=== PATIENT | male | born 2000 | race Caucasian/White ===

== ENCOUNTER 2021-12-26 19:44 | Emergency (ER) | payer BC, SELFPAY ==
--- NOTE | 2021-12-26 20:00 | HMH.EDUTC ---
[facility] [place] Clinical Impression: Viral syndrome, Exposure to COVID-19 virus Fever Qualifiers: Fever type: unspecified Qualified Code(s): R50.9 - Fever, unspecified Disposition: Home, Self-Care Condition on Discharge: Good Instructions: DI for Viral Syndrome, DI for COVID-19 (Suspected or Confirmed ), Preventing the Spread of Coronavirus Discharge Instructions Additional Instructions: Drink plenty of fluids. Take tylenol or ibuprofen for pain or fever. Take the medications as directed. Follow up with your regular doctor. GO TO THE ER FOR ANY WORSENING SYMPTOMS Quarantine until you know the results of your covid-19 test. Notify your school or workplace of your results and follow their instructions regarding return to work/school. I will call you in the morning about your blood counts. I'm sure they will be ok, but we should check them. Prescriptions: Ibuprofen [Ibuprofen 800mg Tablet] 800 mg PO Q8HP PRN #30 tab PRN Reason: Moderate Pain Transmission Status: Received by [id number] Ondansetron [Zofran 4mg ODT] 4 mg PO Q8HP PRN #20 tab PRN Reason: Nausea Transmission Status: Received by [id number] Referrals: Provider,Referral, MD [Primary Care Provider] - Time of Disposition: 20:48 Medical Decision Making - Medical Records Medical records reviewed: No: I reviewed the patient's medical records. - Tono Inquiry Pt receiving controlled substance: No Vital Signs: 12/26/21 20:07 12/26/21 20:56 Temperature 101.4 F H 101.0 F H Temperature Source Oral Pulse Rate 92 H Pulse Rate [Brachial] 95 H Respiratory Rate 20 18 Blood Pressure 125/70 Blood Pressure [Right Arm] 128/62 Blood Pressure Mean [Right Arm] 84 Blood Pressure Source [Right Arm] Automatic Cuff Blood Pressure Position Sitting Blood Pressure Position [Right Arm] Sitting 02 Sat by Pulse Oximetry 99 Oxygen Delivery Method Room Air Room Air - Lab Data Lab results reviewed: Yes: I reviewed the patient's lab results. Lab Results 12/26/21 20:15: Chlamy pneumoniae PCR Not detected, Adenovirus (PCR) Not detected, B. pertussis DNA (PCR) Not detected, Coronavirus OC43 (PCR) Not detected, Coronavirus HKU1 (PCR) Not detected, Coronavirus 229E (PCR) Not detected, SARS-CoV-2 (PCR) Not detected, Coronavirus NL63 (PCR) Not detected, Human Metapneumovir PCR Not detected, Influenza A (H1) PCR Not detected, Influ A (H1N1/09) PCR Not detected, Influenza A (H3) PCR Not detected, Influenza Type A (PCR) Not detected, Influenza Type B (PCR) Not detected, M. pneumoniae (PCR) Not detected, Parainfluenza 1 (PCR) Not detected, Parainfluenza 2 (PCR) Not detected, Parainfluenza 3 (PCR) Not detected, Parainfluenza 4 (PCR) Not detected, RSV (PCR) Not detected, Entero/Rhino (PCR) Not detected 12/26/21 20:30: Strep Scn [facility] Negative 12/26/21 20:50: WBC 5.1, RBC 5.30, Hgb 15.9, Hct 48.7, MCV 91.9, MCH 30.1, MCHC 32.7, RDW 13.0, Plt Count 150, MPV 8.2, Neut % (Auto) 44.3, Lymph % (Auto) 43.0, Robertson % (Auto) 6.5, Eos % (Auto) 2.3, Baso % (Auto) 4.0 H, Neut # (Auto) 2.3, Lymph # (Auto) 2.2, Robertson # (Auto) 0.3, Eos # (Auto) 0.1, Baso # (Auto) 0.2 12/26/21 20:50: Sodium 134 L, Potassium 4.0, Chloride 98, Carbon Dioxide 29, Anion Gap 11.0, BUN 11, Creatinine 0.80, Estimated Creat Clear 205, Estimated GFR 122, Est GFR ( Amer) 148, Glucose 92, Calcium 8.7, Total Bilirubin 0.5, AST 47, ALT 50, Alkaline Phosphatase 55, Total Protein 6.7, Albumin 4.1, Globulin 2.6, Albumin/Globulin Ratio 1.6 Result diagrams: 12/26/21 20:50 12/26/21 20:50 Orders (Tests/Meds): ORDERS Category Date Time Status Strep Screen Confirmation Stat Micro 12/26/21 20:30 Received [facility] [place] - General Stated complaint: FABIAN nausa Time Seen by Provider: 12/26/21 20:00 - History of Present Illness Provider Complaint: He states that for the past 2 days he has had body aches, chills, low grade fever, a dry cough and he has f
[2021-12-26 20:07] VITALS: BP 128/62; PULSE 95; RESP 20; TEMP 38.6; O2SAT 99; BMI 28.0
[2021-12-26 20:20] LABS: Adenovirus,PCR Not Detected (NotDetected); Bordetella Pertussis Not Detected (NotDetected); Chlamydophila Pneumoniae, PCR Not Detected (NotDetected); Coronavirus 19, PCR Not Detected (NotDetected); Coronavirus 229E Not Detected (NotDetected); Coronavirus NL63 Not Detected (NotDetected); Coronavirus OC43 Not Detected (NotDetected); Coronovirus HKU1,PCR Not Detected (NotDetected); Human Metapneumovirus Not Detected (NotDetected); Influenza A, PCR Not Detected (NotDetected); Influenza AH1, 2009 Not Detected (NotDetected); Influenza AH1, PCR Not Detected (NotDetected); Influenza AH3,PCR Not Detected (NotDetected); Influenza B, PCR Not Detected (NotDetected); Mycoplasma Pneumoniae, PCR Not Detected (NotDetected); Parainfluenza 1, PCR Not Detected (NotDetected); Parainfluenza 2, PCR Not Detected (NotDetected); Parainfluenza 3, PCR Not Detected (NotDetected); Parainfluenza 4, PCR Not Detected (NotDetected); Respiratory Syncytial Virus Not Detected (NotDetected); Rhinovirus/Enterovirus Not Detected (NotDetected)
[2021-12-26 20:38] LABS: UTC Strep Screen (Rapid) Negative (Negative)
[2021-12-26 20:56] VITALS: BP 125/70; PULSE 92; RESP 18; TEMP 38.3; O2SAT 99
[2021-12-26 21:06] LABS: Basophils # 0.2 K/mm3 (0-0.2); Eosinophils # 0.1 K/mm3 (0.0-0.4); Eosinophils % 2.3 % (0.1-12.0); Hematocrit 48.7 % (42.0-52.0); Hemoglobin 15.9 g/dL (14.1-18.0); Lymphocytes # 2.2 K/mm3 (0.7-4.5); Mean Corpuscular HGB Conc 32.7 g/dL (31.8-35.4); Mean Corpuscular Hemoglobin 30.1 pg (27.0-31.2); Mean Corpuscular Volume 91.9 fl (80-94); Mean Platelet Volume 8.2 fl (7.4-10.4); Monocytes # 0.3 K/mm3 (0.1-1.0); Monocytes % 6.5 % (1.7-9.3); Neutrophils # 2.3 K/mm3 (1.8-7.8); Neutrophils % 44.3 % (37.0-80.0); Platelet Count 150 K/mm3 (142-424); White Blood Count 5.1 K/mm3 (4.8-10.8)
[2021-12-26 21:13] LABS: Chloride 98 mmol/L (98-107); Sodium 134 mmol/L (136-145)
[2021-12-26 21:16] LABS: Albumin Level 4.1 g/dl (3.5-5.0); Albumin/Globulin Ratio 1.6 (1.1-1.8); Globulin 2.6 g/dL (1.3-3.2); Total Protein,Serum 6.7 g/dl (6.3-8.2)
[2021-12-26 21:56] LABS: Alanine Aminotransferase 50 U/L (12-78); Alkaline Phosphatase 55 U/L (38-126); Aspartate Amino Transferase 47 U/L (17-59); Bilirubin,Total 0.5 mg/dl (0.2-1.3); Blood Urea Nitrogen 11 mg/dl (9-20); Calcium 8.7 mg/dl (8.4-10.2); Carbon Dioxide 29 mmol/L (22.0-30.0); Creatinine Clearance Estimated 205 mL/min (50-200); Estimated Glomerular Filt Rate 122 ml/min (>60); GFR (African American) 148 ML/MIN (>60); Glucose 92 mg/dl (74-100)
== END 2021-12-26 20:59 | disposition home or self-care (01) ==
PROVIDERS: Emergency Provider Nurse Practitioner Family
DX: B34.9 Viral infection, unspecified (principal); R50.9 Fever, unspecified
CPT/HCPCS: 80053; 85025; 87581; 87632; 87798; 87880; 99212; C9803; G0463; U0003; U0005

== ENCOUNTER 2021-12-28 13:18 | Emergency (ER) | payer BC, SELFPAY ==
[2021-12-28 13:25] VITALS: BP 106/74; PULSE 97; RESP 18; TEMP 37.3; O2SAT 98; BMI 28.0
[2021-12-28 13:43] LABS: Adenovirus,PCR Not Detected (NotDetected); Bordetella Pertussis Not Detected (NotDetected); Chlamydophila Pneumoniae, PCR Not Detected (NotDetected); Coronavirus 19, PCR Not Detected (NotDetected); Coronavirus 229E Not Detected (NotDetected); Coronavirus NL63 Not Detected (NotDetected); Coronavirus OC43 Not Detected (NotDetected); Coronovirus HKU1,PCR Not Detected (NotDetected); Human Metapneumovirus Not Detected (NotDetected); Influenza A, PCR Not Detected (NotDetected); Influenza AH1, 2009 Not Detected (NotDetected); Influenza AH1, PCR Not Detected (NotDetected); Influenza AH3,PCR Not Detected (NotDetected); Influenza B, PCR Not Detected (NotDetected); Mycoplasma Pneumoniae, PCR Not Detected (NotDetected); Parainfluenza 1, PCR Not Detected (NotDetected); Parainfluenza 2, PCR Not Detected (NotDetected); Parainfluenza 3, PCR Not Detected (NotDetected); Parainfluenza 4, PCR Not Detected (NotDetected); Respiratory Syncytial Virus Not Detected (NotDetected); Rhinovirus/Enterovirus Not Detected (NotDetected)
--- NOTE | 2021-12-28 13:47 | HMH.EDUTC ---
[facility] [place] Impression: Bronchitis Sinusitis Qualifiers: Sinusitis location: unspecified location Chronicity: unspecified Qualified Code(s): J32.9 - Chronic sinusitis, unspecified Disposition: Home, Self-Care Condition on Discharge: Good Instructions: Sinusitis, DI for Sinusitis Additional Instructions: ? Start antibiotic today. Be sure to complete entire prescription even if feeling better ? Monitor temp. Tylenol every 4 hours as needed and / or ibuprofen every 6 hours as needed ( As long as your primary care physician has told you that it ok to take both. For fever/aches/pains ER if no less than 101 despite Tylenol or Motrin ? Humidifier/vaporizer or hot steamy shower ? Inhaler every 4-6 hours as needed like we discussed. If unsure how to use it, ask pharmacist to demonstrate how. Should help open airways and improve cough, wheezing, and shortness of breath ? Mucinex during the day for your cough and cough suppressant only at night. Be sure to drink lots of water. Insurance may not cover a prescriptions for mucinex. Might be cheaper to get 400mg tablets and take 2 tablet in the morning, mid-day and evening with lots of water. *Start steroid today. Helps with inflammation therefore, cough and wheezing. Follow directions on the package. Reviewed side effects. Patient reports taking them before. Follow up IMMEDIATELY for new or worsening of symptoms OR no noticeable improvement over the next 48-72 hours. 911 immediately for any life threatening symptoms such as chest pain or difficulty breathing Prescriptions: Albuterol Sulfate [Proventil-HFA 90mcg/puff Inh] 1 - 2 puffs IH Q6HP PRN #1 each PRN Reason: Shortness Of Breath Transmission Status: Pending to [facility] guaiFENesin [Mucinex 600mg tablet] 1 - 2 mg PO Q12HP PRN #20 tab PRN Reason: Congestion Transmission Status: Pending to [facility] methylPREDNISolone [Medrol 4mg tab] 4 mg PO DIRECTED #21 tab Transmission Status: Pending to [facility] Azithromycin [Z-Huey 250mg Tab] 250 mg PO DIRECTED #6 tab Transmission Status: Pending to [facility] Referrals: Provider,Referral, MD [Primary Care Provider] - As needed Forms: Work/School Release Time of Disposition: 14:04 Medical Decision Making - Tono Inquiry Pt receiving controlled substance: No Tono was queried for this patient: No Vital Signs: 12/28/21 13:25 Temperature 99.1 F Temperature Source Oral Pulse Rate [Right Brachial] 97 H Respiratory Rate 18 Blood Pressure [Right Arm] 106/74 L Blood Pressure Mean [Right Arm] 84 Blood Pressure Source [Right Arm] Automatic Cuff Blood Pressure Position [Right Arm] Sitting 02 Sat by Pulse Oximetry 98 Oxygen Delivery Method Room Air Orders (Tests/Meds): ORDERS Category Date Time Status Full Resp Panel w/COVID ([facility]) Routine Lab 12/28/21 13:[address] [facility] [place] - General Stated complaint: chest congestion, weakness, bodyaches, migraine Time Seen by Provider: 12/28/21 13:35 Mode of Arrival: Ambulatory Source of Information: Patient Limitations: No Limitations Description of Symptoms (Recalled from Triage Doc. by RN): PATIENT C/O HEADACHE, CHEST CONGESTION, BODY ACHES, SOA, COUGH AND SORE THROAT SINCE TUESDAY. HE REPORTS BEING SEEN IN [facility] [place] ON TUESDAY BUT IS FEELING WORSE TODAY HEENT Symptoms (Recalled from RN notes): Yes Resp Symptoms (Recalled from RN notes): Yes Skin Symptoms (Recalled from RN notes): No MS Symptoms (Recalled from RN notes): No Functional Status (Recalled from RN notes): WNL - History of Present Illness Provider Complaint: Patient states that he has been having sinus pain and pressure, drainage in the back of his throat, cough, chest congestion and headache States that he was seen a few days ago and was tested for COVID and had lab work but he has continued to get worse so he came back in - Related Data Previous Rx's Medication Instructions Recorded Ibuprofen [Ibup
[2021-12-28 14:00] VITALS: BP 106/74; PULSE 97; RESP 18; TEMP 37.3; O2SAT 98
[2021-12-28 14:05] LABS: UTC Strep Screen (Rapid) Negative (Negative)
== END 2021-12-28 14:05 | disposition home or self-care (01) ==
PROVIDERS: Emergency Provider Nurse Practitioner
DX: J40 Bronchitis, not specified as acute or chronic (principal); J32.9 Chronic sinusitis, unspecified
CPT/HCPCS: 87581; 87632; 87798; 87880; 99212; C9803; G0463; U0003; U0005

== ENCOUNTER 2022-04-27 14:31 | Emergency (ER) | payer BC, SELFPAY ==
--- NOTE | 2022-04-27 15:26 | EXP.UTC ---
Discharge Plan Disposition Patient Disposition: Home, Self-Care Condition: Good Prescriptions Prescriptions: New ibuprofen [IBU] 800 mg tablet 800 mg PO Q8HP PRN (Reason: Moderate Pain) Qty: 30 0RF No Action sertraline [Zoloft] 50 mg tablet 50 mg PO DAILY Qty: 30 1RF Referrals Follow up/Referrals: Provider,Referral, [Primary Care Provider] - See instructions Renetta Leal DPM [Staff Physician] - See instructions Activity Restrictions/Add. Instructions Additional Instructions/Restrictions: Rest the extremity, Elevate the extremity as tolerated while you are resting. Take ibuprofen for pain. I sent in a prescription to your pharmacy. Follow up with Dr. Leal (podiatry). I put in a referral but you need to call her office and schedule an appointment. Follow up with your regular doctor. GO TO THE ER FOR ANY WORSENING SYMPTOMS Clinical Impressions Clinical Impression: Closed fracture of left great toe Instructions Patient Instructions: Toe Fracture, DI for Toe Fracture Discharge ED Provider: Aden Palacio [facility] General Stated complaint: LT big toe pain AO Time Seen by Provider: 04/27/22 15:26 History of Present Illness Provider Complaint: He states that 1 month ago he got his left foot caught in a [place]. Since then he has had pain and swelling of that toe. Related Data Previous Rx's Medication Instructions Recorded sertraline 50 mg tablet (Zoloft) 50 mg PO DAILY #30 tabs 04/05/22 ibuprofen 800 mg tablet (IBU) 800 mg PO Q8HP PRN Moderate Pain 04/27/22 #30 tabs Allergies Allergy/AdvReac Type Severity Reaction Status Date / Time No Known Allergies Allergy Verified 04/27/22 15:37 [facility] Medical History Generalized anxiety disorder Surgical History History of tonsillectomy and adenoidectomy Family History Mother FHx: mental illness Father FHx: mental illness Family/Other FHx: mental illness Social History Smoking Status: Current every day smoker quit status: considering quitting second hand exposure: No alcohol intake: never substance use type: denies use counseling given: No (not needed) current occupational status: employed and other Travel in the last 8 weeks: None adopted: No caregiver/support person: No foster care: No household members: significant other and other details: lives with boyfriend; and boyfriend's mom housing: house marital status: single number of children: 0 service: No snf: No pets and animals: Yes (5 dogs) pets and animals: dog(s) Hx Recent Travel: No sexually active: Yes physical activity: none ROS Obtained: Yes All systems reviewed & no additional complaints except as documented Constitutional Constitutional: Denies chills and Denies fever(s) Integumentary/Breasts Skin/Breast: Denies redness, Denies rash and Denies wounds Neurologic Neurologic: Denies paresthesias Physical Exam General General appearance: alert and in no apparent distress Head Head exam: atraumatic, normocephalic and normal inspection Eye Eye exam: Present normal appearance, PERRL and EOMI ENT ENT exam: Present normal exam, normal oropharynx, mucous membranes moist, TM's normal bilaterally and normal external ear exam Neck Neck exam: Present normal inspection, full ROM and trachea midline; Absent meningismus or lymphadenopathy Chest Chest inspection: Present normal inspection and symmetric chest wall rise; Absent tenderness Respiratory Respiratory exam: Present normal lung sounds bilaterally; Absent respiratory distress Cardiovascular Cardiovascular exam: Present regular rate and normal rhythm; Absent JVD Abdominal Exam Abdominal exam: Present soft and normal bowel
[2022-04-27 15:34] VITALS: BP 112/85; PULSE 93; RESP 18; TEMP 36.4; O2SAT 99; BMI 28.8
--- NOTE | 2022-04-27 15:43 | XR_ITS ---
FINAL REPORT CLINICAL HISTORY: injury, smashed great toe x 1 .5 months ago swelling FINDINGS: 3 views of the left foot were obtained. There is an oblique minimally displaced fracture of the 1st proximal phalanx. Fracture line extends to the medial IP joint. There may be mild callus formation at the fracture site. The joint spaces are intact. The soft tissues are unremarkable. IMPRESSION: Oblique fracture of the 1st proximal phalanx with intra-articular extension. Reviewed, Interpreted and Dictated by Reynaldo Garcia MD Transcribed by Judson Verdugo Authenticated and [facility]
[2022-04-27 16:30] VITALS: BP 112/85; PULSE 93; RESP 18; TEMP 36.4
== END 2022-04-27 16:34 | disposition home or self-care (01) ==
PROVIDERS: Emergency Provider Nurse Practitioner Family
DX: S92.412A Displaced fracture of proximal phalanx of left great toe, initial encounter for closed fracture (principal); W22.8XXA Striking against or struck by other objects, initial encounter; Y92.838 Other recreation area as the place of occurrence of the external cause
CPT/HCPCS: 73630; 99213; G0463

== ENCOUNTER 2022-10-15 19:28 | Emergency (ER) | payer BC, SELFPAY ==
--- NOTE | 2022-10-15 19:26 | ECG_ITS ---
APPROVED REPORT Exam: Resting ECG HR:83 bpm ECG Measurements Heart Rate 83 AXES TX 148 P 69 QRSd 106 QRS 8 QT 358 T 64 QTc 398 Conclusion SINUS RHYTHM INCOMPLETE RIGHT BUNDLE BRANCH BLOCK [90+ ms QRS DURATION, TERMINAL R IN V1/V2, 40+ ms S IN I/aVL/V4/V5/V6] BORDERLINE ECG UNCONFIRMED REPORT Electronically signed by : Ananth Randolph MD 10/16/2022 15:52:14
[2022-10-15 19:28] VITALS: BP 146/73; PULSE 82; RESP 16; TEMP 36.6; O2SAT 97; BMI 36.9
--- NOTE | 2022-10-15 19:34 | XR_ITS ---
PROCEDURE INFORMATION: Exam: XR Chest Exam date and time: 10/15/2022 7:36 PM Age: 22 years old Clinical indication: Pain; Angina pectoris; Additional info: Cp TECHNIQUE: Imaging protocol: Radiologic exam of the chest. Views: 2 views. COMPARISON: No relevant prior studies available. FINDINGS: Lungs: Lung volumes are mild to moderately diminished. The lungs appear clear. No focal areas of consolidation. Pleural spaces: No pleural effusions. Negative for pneumothorax. Heart/Mediastinum: Cardiac silhouette and pulmonary vasculature are within range of normal. Bones/joints: There is no evidence of acute fracture. IMPRESSION: Negative for an acute cardiopulmonary abnormality.
[2022-10-15 19:43] LABS: Basophils % 0.5 % (0.1-2.0); Eosinophils # 0.5 K/mm3 (0.0-0.4); Eosinophils % 6.5 % (0.1-12.0); Hematocrit 45.2 % (42.0-52.0); Hemoglobin 15.2 g/dL (14.1-18.0); Lymphocytes # 2.2 K/mm3 (0.7-4.5); Lymphocytes % 30.4 % (10-50); Mean Corpuscular HGB Conc 33.6 g/dL (31.8-35.4); Mean Corpuscular Hemoglobin 29.3 pg (27.0-31.2); Mean Corpuscular Volume 87.2 fl (80-94); Mean Platelet Volume 7.8 fl (7.4-10.4); Monocytes # 0.4 K/mm3 (0.1-1.0); Monocytes % 6.1 % (1.7-9.3); Neutrophils # 4.1 K/mm3 (1.8-7.8); Neutrophils % 56.5 % (37.0-80.0); Platelet Count 223 K/mm3 (142-424); Red Blood Count 5.18 M/mm3 (4.60-6.20); Red Cell Distribution Width 12.9 % (11.5-17.5); White Blood Count 7.2 K/mm3 (4.8-10.8)
[2022-10-15 19:47] LABS: Chloride 96 mmol/L (98-107); Potassium 3.8 mmoL/L (3.5-5.1); Sodium 139 mmol/L (136-145)
[2022-10-15 19:50] LABS: Anion Gap 15.8 mEq/L (5-15); Blood Urea Nitrogen 17 mg/dl (9-20); Carbon Dioxide 31 mmol/L (22.0-30.0); Creatinine Clearance Estimated 231 mL/min (50-200); Estimated Glomerular Filt Rate 106 ml/min (>60); GFR (African American) 128 ML/MIN (>60); Glucose 78 mg/dl (74-100)
[2022-10-15 20:00] VITALS: BP 103/60; PULSE 76; RESP 16; O2SAT 99
[2022-10-15 20:05] LABS: Troponin I < 0.01 ng/ml (0.00-0.034)
[2022-10-15 20:30] VITALS: BP 119/72; PULSE 83; RESP 18; O2SAT 99
--- NOTE | 2022-10-15 21:11 | HMH.EDCP ---
Discharge Plan Disposition Patient Disposition: Home, Self-Care Condition: Good Prescriptions Prescriptions: New famotidine [Pepcid] 20 mg tablet 20 mg PO BID 42 Days Qty: 84 0RF No Action fluoxetine [Prozac] 20 mg capsule 20 mg PO DAILY Qty: 30 1RF ibuprofen [IBU] 800 mg tablet 800 mg PO Q8HP PRN (Reason: Moderate Pain) Qty: 30 0RF Referrals Follow up/Referrals: Provider,Referral, MD [Primary Care Provider] - See instructions Activity Restrictions/Add. Instructions Additional Instructions/Restrictions: Please return immediately for any new or worsening symptoms. Please see your PCP in 2 days for re-evaluation of your symptoms. Clinical Impressions Clinical Impression: Chest pain Instructions Patient Instructions: DI for Atypical Chest Pain Discharge ED Provider: Toney Dejesus Chest Pain HPI General Chief Complaint: Chest Pain Stated Complaint: cp Time Seen by Provider: 10/15/22 20:25 Mode of Arrival: Ambulatory Source of Information: Patient Limitations: No Limitations Description of Symptoms (Recalled from ER Triage Doc. by RN): pt states that he had some burning sensation in his chest this am. Then this afternoon started having achy in lt side chest History of Present Illness HPI narrative: 22 year old with no significant PMH who presents with cp. earlier today patient had epigastric burning and now having burning in the LS of his chest. he has a cough but no fevers. no soa, arm pain, leg pain, leg swelling, or hemoptysis Related Data Previous Rx's Medication Instructions Recorded ibuprofen 800 mg tablet (IBU) 800 mg PO Q8HP PRN Moderate Pain 04/27/22 #30 tabs fluoxetine 20 mg capsule (Prozac) 20 mg PO DAILY #30 caps 08/31/22 famotidine 20 mg tablet (Pepcid) 20 mg PO BID 6 weeks #84 tabs 10/15/22 Allergies Allergy/AdvReac Type Severity Reaction Status Date / Time No Known Allergies Allergy Verified 08/31/22 09:39 [facility] [place] Disclaimer: The information contained in this section may have been updated after the patient was seen, as this information can be updated by other users. Medical History Generalized anxiety disorder Surgical History History of tonsillectomy and adenoidectomy Family History Mother FHx: mental illness Father FHx: mental illness Family/Other FHx: mental illness Social History Smoking Status: Current every day smoker quit status: considering quitting second hand exposure: No alcohol intake: never substance use type: denies use counseling given: No (not needed) current occupational status: employed and other Travel in the last 8 weeks: None adopted: No caregiver/support person: No foster care: No household members: significant other and other details: lives with boyfriend; and boyfriend's mom housing: house marital status: single number of children: 0 service: No longterm: No pets and animals: Yes (5 dogs) pets and animals: dog(s) Hx Recent Travel: No sexually active: Yes physical activity: none ROS Obtained: Yes All systems reviewed & no additional complaints except as documented Physical Exam General General appearance: alert and in no apparent distress Head Head exam: atraumatic and normocephalic Eye Eye exam: Present normal appearance ENT ENT exam: Present normal exam Neck Neck exam: Present normal inspection Chest Chest inspection: Present normal inspection and symmetric chest wall rise Respiratory Respiratory exam: Present normal lung sounds bilaterally Cardiovascular Cardiovascular exam: Present regular rate and normal rhythm Abdominal Exam Abdominal exam: Present soft Extremities Exam Extremities exam: Present normal inspection Neurological Exam Neurologi
[2022-10-15 21:12] VITALS: BP 108/56; PULSE 80; PULSE 82; RESP 18; TEMP 36.6; O2SAT 99
== END 2022-10-15 21:19 | disposition home or self-care (01) ==
PROVIDERS: Emergency Provider Emergency Medicine
DX: R07.9 Chest pain, unspecified (principal); F17.200 Nicotine dependence, unspecified, uncomplicated
CPT/HCPCS: 71046; 80048; 84484; 85025; 93005; 96374; 99285

== ENCOUNTER 2022-10-20 11:09 | Emergency (ER) | payer BC, SELFPAY ==
[2022-10-20 11:33] VITALS: BP 128/91; PULSE 64; RESP 18; TEMP 37.1; O2SAT 99; BMI 36.9
--- NOTE | 2022-10-20 11:51 | EXP.UTC ---
Discharge Plan Disposition Patient Disposition: Home, Self-Care Condition: Good Prescriptions Prescriptions: New azithromycin [Zithromax] 250 mg tablet 250 mg PO UD DOSE PK Qty: 6 0RF Rx Instructions: Take two (2) tablets today, then one (1) tablet days #2 thru #5 methylprednisolone 4 mg Tablets,Dose Pack 4 mg PO DIRECTED Qty: 21 0RF ohyztjolgygnpzv-iaxjlzqiv-CZ [Bromfed DM] 2-30-10 mg/5 mL Syrup 5 ml PO Q6H PRN (Reason: Cough) Qty: 240 0RF No Action fluoxetine [Prozac] 20 mg capsule 20 mg PO DAILY Qty: 30 1RF famotidine [Pepcid] 20 mg tablet 20 mg PO BID 42 Days Qty: 84 0RF ibuprofen [IBU] 800 mg tablet 800 mg PO Q8HP PRN (Reason: Moderate Pain) Qty: 30 0RF Referrals Follow up/Referrals: Provider,Referral, MD [Primary Care Provider] - See instructions Activity Restrictions/Add. Instructions Additional Instructions/Restrictions: Drink plenty of fluids. Take tylenol or ibuprofen for pain or fever. Take the medications as directed. Follow up with your regular doctor. GO TO THE ER FOR ANY WORSENING SYMPTOMS Clinical Impressions Clinical Impression: Sinusitis Stand Alone Forms Stand Alone Forms: Work/School Release Instructions Patient Instructions: Sinusitis, DI for Sinusitis Discharge ED Provider: Aden Palacio [facility] General Stated complaint: Congestion, drainage, sore throat Mode of Arrival: Ambulatory Source of Information: Patient Limitations: No Limitations Time Seen by Provider: 10/20/22 11:51 Description of Symptoms (Recalled from Triage Doc. by RN): pt c/o sinus pressure/congestion and a migraine x2d HEENT Symptoms (Recalled from RN notes): Yes Resp Symptoms (Recalled from RN notes): No Skin Symptoms (Recalled from RN notes): No MS Symptoms (Recalled from RN notes): No Functional Status (Recalled from RN notes): wnl History of Present Illness Provider Complaint: He c/o sinus congestion for the past 4 days. Related Data Previous Rx's Medication Instructions Recorded ibuprofen 800 mg tablet (IBU) 800 mg PO Q8HP PRN Moderate Pain 04/27/22 #30 tabs fluoxetine 20 mg capsule (Prozac) 20 mg PO DAILY #30 caps 08/31/22 famotidine 20 mg tablet (Pepcid) 20 mg PO BID 6 weeks #84 tabs 10/15/22 azithromycin 250 mg tablet 250 mg PO UD DOSE PK #6 tabs 10/20/22 (Zithromax) ylhesbmoljgencg-tzehtvmpiigrjxh-CF 5 ml PO Q6H PRN Cough #240 mL 10/20/22 2 mg-30 mg-10 mg/5 mL oral syrup (Bromfed DM) methylprednisolone 4 mg tablets in 4 mg PO DIRECTED #21 tabs 10/20/22 a dose pack Allergies Allergy/AdvReac Type Severity Reaction Status Date / Time No Known Allergies Allergy Verified 10/20/22 11:35 Worker's Comp Is this a Worker's Comp case?: No [facility] Disclaimer: The information contained in this section may have been updated after the patient was seen, as this information can be updated by other users. Medical History Generalized anxiety disorder Surgical History History of tonsillectomy and adenoidectomy Family History Mother FHx: mental illness Father FHx: mental illness Family/Other FHx: mental illness Social History Smoking Status: Current every day smoker quit status: considering quitting second hand exposure: No alcohol intake: never substance use type: denies use counseling given: No (not needed) current occupational status: employed and other Travel in the last 8 weeks: None adopted: No caregiver/support person: No foster care: No household members: significant other and other details: lives with boyfriend; and boyfriend's mom housing: house marital status: single number of children: 0 service: No mcc: No pets and animals: Yes (5 dogs) pets and an
[2022-10-20 12:22] VITALS: BP 128/91; PULSE 64; RESP 18; TEMP 37.1
== END 2022-10-20 12:24 | disposition home or self-care (01) ==
PROVIDERS: Emergency Provider Nurse Practitioner Family
DX: J01.90 Acute sinusitis, unspecified (principal); F17.210 Nicotine dependence, cigarettes, uncomplicated
CPT/HCPCS: 99212; 99214; G0463

== ENCOUNTER 2022-10-28 12:52 | Emergency (ER) | payer BC, SELFPAY ==
[2022-10-28 13:04] VITALS: BP 113/68; PULSE 62; RESP 18; TEMP 37.2; O2SAT 98; BMI 41.9
--- NOTE | 2022-10-28 13:42 | EXP.UTC ---
Discharge Plan Disposition Patient Disposition: Home, Self-Care Condition: Good Prescriptions Prescriptions: New ondansetron 4 mg tablet,disintegrating 4 mg PO Q8H PRN (Reason: nausea and vomiting) Qty: 10 0RF No Action fluoxetine [Prozac] 20 mg capsule 20 mg PO DAILY Qty: 30 1RF famotidine [Pepcid] 20 mg tablet 20 mg PO BID 42 Days Qty: 84 0RF ibuprofen [IBU] 800 mg tablet 800 mg PO Q8HP PRN (Reason: Moderate Pain) Qty: 30 0RF azithromycin [Zithromax] 250 mg tablet 250 mg PO UD DOSE PK Qty: 6 0RF Rx Instructions: Take two (2) tablets today, then one (1) tablet days #2 thru #5 methylprednisolone 4 mg Tablets,Dose Pack 4 mg PO DIRECTED Qty: 21 0RF [id number] [Bromfed DM] 2-30-10 mg/5 mL Syrup 5 ml PO Q6H PRN (Reason: Cough) Qty: 240 0RF Referrals Follow up/Referrals: Provider,Referral, MD [Primary Care Provider] - See instructions Activity Restrictions/Add. Instructions Additional Instructions/Restrictions: Drink extra fluids with and between meals. If you have difficulty drinking, try very small amounts of water or suck on ice chips. ? Avoid fruit juices, as these do not replace minerals and can actually increase diarrhea. ? Children and adults can use sports drinks to replenish electrolytes. Younger children and infants should use products formulated for children, like oral rehydration solutions. ? Eat food in small amounts and let your stomach recover. ? Get lots of rest. You may feel tired or weak. ? No greasy or fried foods for the next 24-48 hours BRAT diet Bananas Rice Apples and [place] ? Make sure to drink plenty of liquids ? Return if needed ? Straight to ER if any life threatening symptoms ? Zofran as prescribed ? Follow up with family doctor in the next 48-72 hours if no improvement or any worsening of symptoms Clinical Impressions Clinical Impression: Nausea vomiting and diarrhea Stand Alone Forms Stand Alone Forms: Work/School Release Instructions Patient Instructions: Nausea and Vomiting-Adult, Diarrhea Discharge ED Provider: Anne-Marie Johnson [facility] [place] HPI General Stated complaint: vomiting, diarrhea, fatigue Mode of Arrival: Ambulatory Source of Information: Patient Limitations: No Limitations Time Seen by Provider: 10/28/22 13:42 Description of Symptoms (Recalled from Triage Doc. by RN): pt c/o n/v/d. pt states he had [employer] yesterday and thinks he has food poisoning. HEENT Symptoms (Recalled from RN notes): No Resp Symptoms (Recalled from RN notes): No Skin Symptoms (Recalled from RN notes): No MS Symptoms (Recalled from RN notes): No Functional Status (Recalled from RN notes): wnl History of Present Illness Provider Complaint: Patient states that he eat [employer] yesterday and thinks he may have food poisoning States he has been having N/V/D and wasnt able to go to work today Related Data Previous Rx's Medication Instructions Recorded ibuprofen 800 mg tablet (IBU) 800 mg PO Q8HP PRN Moderate Pain 04/27/22 #30 tabs fluoxetine 20 mg capsule (Prozac) 20 mg PO DAILY #30 caps 08/31/22 famotidine 20 mg tablet (Pepcid) 20 mg PO BID 6 weeks #84 tabs 10/15/22 azithromycin 250 mg tablet 250 mg PO UD DOSE PK #6 tabs 10/20/22 (Zithromax) frrlcthbmfbwrvf-zfjfipainbjclej-ML 5 ml PO Q6H PRN Cough #240 mL 10/20/22 2 mg-30 mg-10 mg/5 mL oral syrup (Bromfed DM) methylprednisolone 4 mg tablets in 4 mg PO DIRECTED #21 tabs 10/20/22 a dose pack ondansetron 4 mg disintegrating 4 mg PO Q8H PRN nausea and 10/28/22 tablet vomiting #10 tabs Allergies Allergy/AdvReac Type Severity Reaction Status Date / Time No Known Allergies Allergy Verified 10/28/22 13:10 Worker's Comp Is this a Worker's Comp case?: No [facility] Disclaimer: The information contained in this section may have been updated after the patient was seen, as this information can be updated by ot
[2022-10-28 14:12] VITALS: BP 113/68; PULSE 62; RESP 18; TEMP 37.2
== END 2022-10-28 14:12 | disposition home or self-care (01) ==
PROVIDERS: Emergency Provider Nurse Practitioner
DX: R11.2 Nausea with vomiting, unspecified (principal); R19.7 Diarrhea, unspecified; F41.9 Anxiety disorder, unspecified; F17.210 Nicotine dependence, cigarettes, uncomplicated
CPT/HCPCS: 99212; 99214; G0463

== ENCOUNTER → 2022-12-01 15:21 | Outpatient (CLI) | payer BC, SELFPAY ==
[2022-12-01 14:33] LABS: Microscopic, Urine URINE MICROSCOPIC (MICROSCOPIC)
[2022-12-01 14:45] LABS: Basophils % 0.3 % (0.1-2.0); Eosinophils # 0.5 K/mm3 (0.0-0.4); Eosinophils % 8.8 % (0.1-12.0); Hematocrit 46.1 % (42.0-52.0); Hemoglobin 15.2 g/dL (14.1-18.0); Lymphocytes # 1.6 K/mm3 (0.7-4.5); Lymphocytes % 30.7 % (10-50); Mean Corpuscular Hemoglobin 28.7 pg (27.0-31.2); Mean Corpuscular Volume 86.9 fl (80-94); Mean Platelet Volume 8.2 fl (7.4-10.4); Monocytes # 0.3 K/mm3 (0.1-1.0); Monocytes % 5.2 % (1.7-9.3); Neutrophils # 2.8 K/mm3 (1.8-7.8); Neutrophils % 54.9 % (37.0-80.0); Platelet Count 207 K/mm3 (142-424); Red Cell Distribution Width 12.8 % (11.5-17.5); White Blood Count 5.1 K/mm3 (4.8-10.8)
[2022-12-01 14:48] LABS: Appearance,Urine CLEAR (Clear); Bilirubin,Urine Negative (Negative); Blood, Urine Negative (Negative); Color,Urine YELLOW (Yellow); Glucose,Urine (UA) Negative (Negative); Ketones,Urine Negative (Negative); Leukocyte Esterase,Urine Negative (Negative); Nitrate,Urine Negative (Negative); Protein,Urine Negative (Negative); Specific Gravity, Urine 1.025 (1.005-1.030); Urobilinogen,Urine 0.2 EU/dl (0.2)
[2022-12-01 15:03] LABS: Chol/HDL Ratio 3.5 (1-3.5); Cholesterol 149 mg/dl (140-200); HDL Cholesterol 43 mg/dl (40-60); Triglycerides 81 mg/dl (30-150); VLDL Cholesterol 16 mg/dL (0-40)
[2022-12-01 15:08] LABS: Bacteria,Urine Trace /lpf
[2022-12-01 15:14] LABS: Chloride 99 mmol/L (98-107); Potassium 4.2 mmoL/L (3.5-5.1); Sodium 139 mmol/L (136-145)
[2022-12-01 15:15] LABS: Direct LDL Cholesterol 89.25 mg/dL (100-129)
[2022-12-01 15:16] LABS: Blood Urea Nitrogen 18 mg/dl (9-20); Estimated Glomerular Filt Rate 106 ml/min (>60); GFR (African American) 128 ML/MIN (>60)
[2022-12-01 15:17] LABS: Alanine Aminotransferase 27 U/L (12-78); Albumin Level 4.1 g/dl (3.5-5.0); Albumin/Globulin Ratio 1.6 (1.1-1.8); Alkaline Phosphatase 74 U/L (38-126); Anion Gap 14.2 mEq/L (5-15); Aspartate Amino Transferase 28 U/L (17-59); Bilirubin,Total 0.2 mg/dl (0.2-1.3); Calcium 8.9 mg/dl (8.4-10.2); Carbon Dioxide 30 mmol/L (22.0-30.0); Globulin 2.6 g/dL (1.3-3.2); Glucose 86 mg/dl (74-100); Iron 59 ug/dL (49-181); Total Protein,Serum 6.7 g/dl (6.3-8.2)
[2022-12-01 15:21] LABS: Free Thyroxine Index 2.5 ug/dL (5.93-13.13); T4 (Thyroxine) 8.4 ug/dl (5.53-11.0); Triiodothryronine (T3) Uptake 30 % (23.5-40.5)
[2022-12-01 15:28] LABS: Total Iron Binding Capacity 346 ug/dL (261-462)
[2022-12-01 15:35] LABS: Thyroid Stimulating Hormone 1.06 uIU/mL (0.465-4.68)
[2022-12-01 15:52] LABS: Vitamin B12 359 pg/mL (239-931)
[2022-12-03 09:16] LABS: Thyroid Peroxidase Antibodies <9 IU/mL (0-34)
[2022-12-08 09:19] LABS: 1,25 Dihydroxy Vitamin D 37 pg/mL (.); 1,25-Dihydroxy, Vitamin D-2 <10 pg/mL (.); 1,25-Dihydroxy, Vitamin D-3 37 pg/mL (.)
== END ==
PROVIDERS: Nurse Practitioner Psychiatric/Mental Health; PCP Nurse Practitioner Family; Visit Provider Nurse Practitioner Family
DX: Z00.00 Encounter for general adult medical examination without abnormal findings (principal); R13.10 Dysphagia, unspecified; R05.9 Cough, unspecified; R11.10 Vomiting, unspecified; K21.9 Gastro-esophageal reflux disease without esophagitis; R53.83 Other fatigue; E66.9 Obesity, unspecified; Z68.41 Body mass index [BMI] 40.0-44.9, adult; Z13.1 Encounter for screening for diabetes mellitus; Z13.220 Encounter for screening for lipoid disorders; Z79.899 Other long term (current) drug therapy
CPT/HCPCS: 80053; 80061; 81001; 82607; 82652; 83036; 83540; 83550; 84436; 84443; 84479; 85025; 86376; 86677; 87086

== ENCOUNTER → 2022-12-09 10:46 | Outpatient (CLI) | payer BC, SELFPAY ==
--- NOTE | 2022-12-09 10:46 | FL_ITS ---
FINAL REPORT CLINICAL HISTORY: dysphagia ft: 1:28 FINDINGS: MODIFIED BARIUM SWALLOW History: Dysphagia FINDINGS: Fluoroscopy was provided for the speech pathologist to evaluate the swallowing mechanism. The patient was given several different consistencies of barium while the swallow was visualized fluoroscopically. The report of the speech pathologist should be consulted prior to making dietary decisions. FLUOROSCOPY TIME: 1.28 minutes IMPRESSION: Modified barium swallow under fluoroscopic guidance. Please see the report of the speech pathologist for Dietary recommendations. Films reviewed , interpreted and dictated by Dr. Hernández Transcribed by Layo Chambers PA-C. Reviewed, Interpreted and Dictated by Doc Hernández III, MD Transcribed by LEANN Arshad Authenticated and [facility]
--- NOTE | 2022-12-09 11:34 | HMH.SLMBS2 ---
Speech & Language Evaluation Speech/Language Mod Barium Swallow Start: 12/09/22 11:22 Freq: once Status: Complete Protocol: Document 12/09/22 11:22 JASWANT (Rec: 12/09/22 11:34 JASWANT [id number]) General Information General Current Food Consistency Regular,Thin Liquids Dentition Good Dentition Oxygen Status Room Air Facial Symmetry Symmetrical Patient Orientation Person,Place,Time,Situation Ability to Follow Directions Excellent Communication Ability No Impairment MBS Recommendations Diet Dietary Recommendations Regular,Thin Liquids Treatment/Strategies Strategy/Precaution Recommend Sitting Upright (90 deg),Small Bites and Sips,Alternate Liquids/Solids Referrals/Other Recommended Referrals GI Consult Mod Barium Swallow Impressions Summary and Impressions Oral Phase Impression No Impairment (WFL) Oral Phase Summary Functional oral phase of swallowing. Mastication was adequate on [facility] soft and regular food trials. Good lingual strength. No oral residue noted and AP transit was adequate. Pharyngeal Phase Impression No Impairment (WFL) Pharyngeal Phase Summary Functional pharyngeal phase of swallowing. No aspiration/ penetration noted on the study . No pharyngeal residue noted. Back of tongue and pharyngeal stripping were adequate. Epiglottic inversion and hyolaryngeal excursion and elevation were adequate for airway safety. UES opening was found to be WFL. Speech/Language MBS Assessment/Goals/Plan Assessment Date of Evaluation: 12/09/22 Evaluation Type Initial Certification Assessment/Problems Dysphagia and cough per MD order. Does Patient Qualify for Service No Qualify/Failure Comment Based on the results of the modified barium swallow study, Mr. Damon does not require any further skilled ST services at this time. Recommendations PHYSICIAN CERTIFICATION: The specified therapy services are required, authorized, and reviewed every 30 days. Diet Recommendations Normal Liquid Type Recommendations Normal/Thin SL Swallow Guidelines Reflux precautions Dysphagia Swallow
== END ==
LOC: RAD 10:46
PROVIDERS: PCP Nurse Practitioner Family; Visit Provider Nurse Practitioner Family
DX: R13.10 Dysphagia, unspecified (principal); R05.9 Cough, unspecified
CPT/HCPCS: 70371; 92611

== ENCOUNTER 2023-04-16 13:08 | Emergency (ER) | payer BC, SELFPAY ==
[2023-04-16 13:15] VITALS: BP 146/91; PULSE 92; RESP 18; TEMP 36.9; O2SAT 97; BMI 41.1
--- NOTE | 2023-04-16 13:34 | EXP.UTC ---
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 Instructions Additional Instructions/Restrictions: covid swab was sent to lab, call tomorrow for results. self isolate until test results are known to be negative No sign of a bacterial infection. Likely viral. Viruses can take 7-14 days to run their course. Nasal saline and bulb syringe or nose Di to remove nasal drainage to help with nasal congestion. Hard to eat, drink, sleep with nasal congestion so important to keep this cleaned out. Monitor temp. Tylenol or Motrin as needed for pain or fever Encourage fluids, water, Gatorade, Powerade, Pedialyte if /toddler/child Warm salt water gargles Warm fluids Sore throat lozenges Sleep elevated Humidifier/vaporizer Follow-up immediately for new or worsening symptoms or no noticeable improvement over the next 48-72 hours. Clinical Impressions Clinical Impression: COVID Instructions Patient Instructions: DI for COVID-19 (Suspected or Confirmed ) Discharge ED Provider: Elian ([facility])Michelet [facility] [place] HPI General Stated complaint: at home pos covid test 04/15, congestion Mode of Arrival: Ambulatory Source of Information: Patient Limitations: No Limitations Time Seen by Provider: 04/16/23 13:40 Description of Symptoms (Recalled from Triage Doc. by RN): Had at home covid test positive. Symptoms are congestion and cough HEENT Symptoms (Recalled from RN notes): Yes Resp Symptoms (Recalled from RN notes): No Skin Symptoms (Recalled from RN notes): No MS Symptoms (Recalled from RN notes): No Functional Status (Recalled from RN notes): n/a History of Present Illness Provider Complaint: 22 yr old male presents for cough and congestion for 3-4 days. pt states he took a at home covid test and it was positive Related Data Home Medications Medication Instructions Recorded Confirmed albuterol sulfate 90 mcg/actuation 2 puff inhalation NEEDED PRN 04/16/23 04/16/23 aerosol inhaler Wheezing Previous Rx's Medication Instructions Recorded semaglutide 0.25 mg or 0.5 mg (2 0.5 mg (0.736 mL) SQ WEEKLY #3 mL 12/30/22 mg/3 mL) subcutaneous pen injector Allergies Allergy/AdvReac Type Severity Reaction Status Date / Time No Known Allergies Allergy Verified 04/16/23 13:32 Worker's Comp Is this a Worker's Comp case?: No [facility] Dis[facility]: The information contained in this section may have been updated after the patient was seen, as this information can be updated by other users. 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
[2023-04-16 13:46] VITALS: BP 146/91; PULSE 92; RESP 18; TEMP 36.9; O2SAT 97
== END 2023-04-16 13:46 | disposition home or self-care (01) ==
PROVIDERS: Emergency Provider Nurse Practitioner Family; PCP Nurse Practitioner Family
DX: U07.1 COVID-19 (principal); F17.290 Nicotine dependence, other tobacco product, uncomplicated; F41.1 Generalized anxiety disorder
CPT/HCPCS: 87635; 99212; 99213; G0463

== ENCOUNTER 2023-07-19 13:15 | Outpatient (CLI) | payer BC, SELFPAY ==
[2023-07-20 12:02] LABS: Rapid Plasma Reagin Ab Titer Non Reactive titer (NonRea<1:1)
[2023-07-20 21:08] LABS: Neisseria gonorrhoeae, NAA Negative (Negative)
[2023-07-21 03:42] LABS: HBsAg Screen Negative (Negative); HCV Ab Non Reactive (Non Reactive); Hep A Ab, IGM Negative (Negative); Hep B Core Ab, IgM Negative (Negative)
[2023-07-21 06:14] LABS: HIV Screen 4th Generation wRfx Non Reactive (Non Reactive)
== END 2023-07-19 23:59 ==
LOC: LAB.DROPOF 13:16
PROVIDERS: PCP Nurse Practitioner Family; Visit Provider Nurse Practitioner Family
DX: Z11.3 Encounter for screening for infections with a predominantly sexual mode of transmission (principal); J02.9 Acute pharyngitis, unspecified; Z11.4 Encounter for screening for human immunodeficiency virus [HIV]
CPT/HCPCS: 80074; 86593; 86703; 87070; 87491; 87591; G0432